=== PATIENT | male | born 1985 | race Caucasian/White ===

== ENCOUNTER 2018-01-04 01:34 | Emergency (ER) | payer SELFPAY | END 2018-01-04 02:00 | disposition left against medical advice (07) | LOC: ERS 01:34 | DX: Z53.21 Procedure and treatment not carried out due to patient leaving prior to being seen by health care provider (principal) ==

== ENCOUNTER 2018-01-04 02:11 | Emergency (ER) | payer SELFPAY ==
[2018-01-04] MEDS ORDERED: Proparacaine 0.5% Opth 15 ML BOT ONE (02:22)
[2018-01-04] MEDS ORDERED: Fluorescein Opthalmic Strip ONE (02:22)
[2018-01-04] MEDS ORDERED: Erythromycin Base 0.5% Oint 1 GM TUBE ONE (02:36)
== END 2018-01-04 02:49 | disposition home or self-care (01) ==
LOC: SCSER 02:11
DX: T15.02XA Foreign body in cornea, left eye, initial encounter (principal)
CPT/HCPCS: 65220

== ENCOUNTER 2018-04-06 23:30 | Emergency (ER) | payer OTHER, SELFPAY ==
[2018-04-06] MEDS ORDERED: Fluorescein Opthalmic Strip ONE (23:42)
[2018-04-06] MEDS ORDERED: Proparacaine 0.5% Opth 15 ML BOT ONE (23:42)
== END 2018-04-07 00:38 | disposition home or self-care (01) ==
LOC: SCSER 23:30
DX: T15.01XA Foreign body in cornea, right eye, initial encounter (principal)
CPT/HCPCS: 65210

== ENCOUNTER 2018-04-07 04:25 | Emergency (ER) | payer OTHER ==
[2018-04-07] MEDS ORDERED: Proparacaine 0.5% Opth 15 ML BOT ONE (04:32)
[2018-04-07] MEDS ORDERED: Fluorescein Opthalmic Strip ONE (04:32)
== END 2018-04-07 04:40 | disposition left against medical advice (07) ==
LOC: SCSER 04:25
DX: Z53.21 Procedure and treatment not carried out due to patient leaving prior to being seen by health care provider (principal)

== ENCOUNTER 2019-12-22 00:38 | Inpatient (IN) | payer OTHER, SELFPAY ==
[2019-12-22] MEDS ORDERED: Acetaminophen 500 MG TAB ONE ×2 (00:58)
[2019-12-22 01:12] LABS: Bacteria/HPF None Seen HPF (None Seen); Bilirubin Negative (Negative); Blood, Urine 2+ (Negative); Clarity Turbid (Clear); Glucose, Urine (Dipstick) Normal (Negative); Leukocyte 500 Leu/uL (Negative); Nitrite Negative (Negative); Protein, Urine (Dipstick) 50 mg/dL (Neg-Trace); RBC/HPF 21-50 HPF (0-3); Squamous Epithelial None Seen HPF (0-3); Urobilinogen Normal mg/dL (Less than 2); WBC/HPF Greater than 50 HPF (0-3)
[2019-12-22 01:19] LABS: Band 5 % (5-11); Lymphocytes 10 % (21-51); MDiff Complete? YES; Mean Corpuscular HGB CONC 33.9 g/dL (32.0-36.0); Mean Corpuscular Hemoglobin 30.1 pg (27.0-31.0); Mean Corpuscular Volume 88.9 fL (78.0-98.0); Mean Platelet Volume 6.2 fL (7.4-10.4); Monocytes 7 % (0-10); Neutrophil 78 % (42-75); Platelet Count 373 thou/uL (130-400); Platelet Morphology Comment Appears Adequate; RBC Distribution Width 11.2 % (11.5-14.5); Red Blood Cell (RBC) Count 4.66 mill/uL (4.70-6.10); White Blood Cell (WBC) Count 20.6 thou/uL (4.8-10.8)
[2019-12-22 01:26] LABS: ALT (SGPT) 48 U/L (8-55); AST (SGOT) 19 U/L (5-34); Albumin 4.2 g/dL (3.5-5.0); Alkaline Phosphatase 119 U/L (40-110); Anion Gap 13 mmol/L (10-20); BUN (Urea Nitrogen) 15 mg/dL (8.9-20.6); Bilirubin, Total 0.8 mg/dL (0.2-1.2); Calc. Creatinine Clearance 0 mL/min (70-130); Calcium 9.7 mg/dL (7.8-10.44); Carbon Dioxide 29 mmol/L (22-29); Chloride 94 mmol/L (98-107); Estimated GFR-MDRD 58; Globulin 4.1 g/dL (2.4-3.5); Glucose 139 mg/dL (70-105); Potassium 4.1 mmol/L (3.5-5.1); Protein, Total 8.3 g/dL (6.0-8.3); Sodium 132 mmol/L (136-145)
[2019-12-22] MEDS ORDERED: cefTRIAXone\\ROCEPHIN 1 GM VIAL ONE (01:27)
--- NOTE | 2019-12-22 04:57 | PDOC.FPRHP ---
- History of Present Illness Chief Complaint: R Flank Pain History of Present Illness: Pt is a 34 yo male with no significant PMH who presented to the emergency department for 2 day history of fever, headache, and a resolved R flank pain. He states his symptoms all started at the same time. His R flank pain was painful to touch, pressure yesterday but not light palpation. He no longer has R flank pain. He denies radiation to his groin, hematuria, dysuria but did endorse increased urinary frequency, urgency. His OLVERA became unbearable early this morning causing him to be seen. The pain is behind his eyes. He denies history of migraines. He does have neck stiffness but is able to touch his head to neck w/o pain. He noted an episode of similar R flank pain 1 month ago as well as dysuria, hematuria but did not see a stone. He denies hx of urinary anatomical malformation. ED Course: In the ED he was given tylenol 1 g, 2 L NS, and Rocephin 1 gm. - Allergies/Adverse Reactions Allergies Allergy/AdvReac Type Severity Reaction Status Date / Time No Known Drug Allergies Allergy Unverified 12/22/19 05:58 - History PMHx: none PSHx: none FHx: none Social: quit smoking 4.5 years ago. Occasional alcohol use. denies drug use. Allergies: none - Review of Systems General: reports: fever/chills, weight/appetite/sleep changes Eyes: reports: eye pain. denies: vision changes ENT: denies: nasal congestion, rhinorrhea Respiratory: denies: cough, congestion, shortness of breath Cardiovascular: denies: chest pain, palpitation, edema Gastrointestinal: reports: nausea. denies: vomiting, diarrhea, constipation Genitourinary: reports: polyuria. denies: incontinence, dysuria Skin: denies: rashes, lesions Musculoskeletal: denies: pain, tenderness Neurological: denies: numbness, syncope - Vital signs BP: 160/96 HR: 108 RR: 17 Tmax: 101.5 Pox: 99% on RA Wt: 102 kg - Physical Exam Constitutional: NAD, awake, alert and oriented HEENT: PERRLA, EOMI Neck: FROM, no JVD Heart: RRR, normal S1/S2, pulses present, no edema Lungs: CTAB, no respiratory distress, good air movement Abdomen: soft, non-tender, bowel sounds present Musculoskeletal: normal structure, normal tone -Musculoskeletal: Negative CVA tenderness Neurological: no focal deficit, CN II-XII intact -Skin: negative Kernig, Brudzinski Heme/Lymphatic: no purpura, no petechia Psychiatric: normal mood and affect FMR H&P: Results - Labs Result Diagrams: 12/22/19 00:53 02 00:53 Lab results: WBC 20.6 thou/uL (4.8-10.8) H 12/22/19 00:53 Hgb 14.0 g/dL (14.0-18.0) 12/22/19 00:53 Hct 41.5 % (42.0-52.0) L 12/22/19 00:53 MCV 88.9 fL (78.0-98.0) 12/22/19 00:53 Plt Count 373 thou/uL (130-400) 12/22/19 00:53 Band Neuts % (Manual) 5 % (5-11) 12/22/19 00:53 Sodium 132 mmol/L (136-145) L 12/22/19 00:53 Potassium 4.1 mmol/L (3.5-5.1) 12/22/19 00:53 Chloride 94 mmol/L (98-107) L 12/22/19 00:53 Carbon Dioxide 29 mmol/L (22-29) 12/22/19 00:53 BUN 15 mg/dL (8.9-20.6) 12/22/19 00:53 Creatinine 1.40 mg/dL (0.7-1.3) H 12/22/19 00:53 Glucose 139 mg/dL (70-105) H 12/22/19 00:53 Lactic Acid 1.2 mmol/L (0.5-2.2) 12/22/19 00:53 Calcium 9.7 mg/dL (7.8-10.44) 12/22/19 00:53 Total Bilirubin 0.8 mg/dL (0.2-1.2) 12/22/19 00:53 AST 19 U/L (5-34) 12/22/19 00:53 ALT 48 U/L (8-55) 12/22/19 00:53 Alkaline Phosphatase 119 U/L (40-110) H 12/22/19 00:53 Serum Total Protein 8.3 g/dL (6.0-8.3) 12/22/19 00:53 Albumin 4.2 g/dL (3.5-5.0) 02 00:53 Urine Ketones Negative mg/dL (Negative) 12/22/19 00:56 Urine Blood 2+ (Negative) A 12/22/19 00:56 Urine Nitrite Negative (Negative) 12/22/19 00:56 Ur Leukocyte Esterase 500 Trinity/uL (Negative) A 12/22/19 00:56 Urine RBC 21-50 HPF (0-3) A 12/22/19 00:56 Urine WBC Greater than 50 HPF (0-3) A 12/22/19 00:56 Ur Squamous Epith Cells None Seen HPF (0-3) 12/22/19 00:56 Urine Bacteria None Seen HPF (None Seen) 12/22/19 00:56 - EKG Interpretation EKG: A-flutter noted on EKG, difficult to discern if pt is in A-flutter 2:1 - Radiology Interpretation Chest x-ray Status: image reviewed by me Additional comment: WNL CT scan - pelvis Status: image reviewed by me Additional comment: Appears to have R perinephric stranding, kidney stones in bilateral kidneys FMR H&P: A/P - Problem List (1) Nephrolithiasis Current Visit: Yes Status: Acute (2) Urinary tract infection Current Visit: Yes Status: Acute - Plan Pt is a 34 yo male here for: # Pyleonephritis 2/2 Obstructing Nephrolithiasis # Sepsis 2/2 Pyleonephritis - continue rocephin 1 gm daily - 2 L in ED, bolus one more liter on floor then start LR 150 mls/hr - Tylenol 1 gm q6hr prn, Ibuprofen 800 mg q6h pain/fever - Urine Cx pending - Blood Cx pending # Obstructing Nephrolithiasis - resolved # Nephrolithiasis - consider urology referral for retained stones in kidney - stone analysis in future # A-Flutter Unable to determine if EKG reveals actual A-flutter. Asymptomatic. - repeat EKG once 3rd bolus finished Fluids: LR 150 mls/hr Diet: Reg VTE: SCD's Code: Full Dispo: > 48 hrs FMR H&P: Upper Level - Plan Date/Time: 12/22/19 2447 ILanette DO, have evaluated this patient and agree with findings/plan as outlined by geotechnical intern resident. Pertinent changes/additions are listed here. Pt is a 34 yo M with no PMH presenting for OLVERA, fever, and severe R flank pain, onset 2.5 days ago. He reports today flank pain resolved but OLVERA worsened and fever was persistent so came in. Hx of similar episode 1 month ago with dysuria , hematuria, and urgency that resolved with increased PO intake and AZO. Denies vision changes, photophobia, phonophobia, ill contacts, neck stiffness, hematuria. +nausea, frequency, urgency. Hx of Chlamydia at age 21. VS: BP160/96, P108, R17, T99.4 (Tmax 101.5), O299%RA PE: Gen: well developed, ill appearing, diaphoretic, in pain Heart: tachycardic, regular rhythm, no murmurs or extra sounds. Distal pulses 2+ Lungs: CTAB, no wheezing. No increased work of breathing Abd: soft, nontender, BS+, no CVA tenderness Ext: no cyanosis or edema Psych: AOx3 Pertinent Labs/Imaging: Na132, K4.1, Cl94, CO229, BUN15, Cr1.4, Gluc 139 LA 1.2 WBC20.6, 5% bands, 78% neutrophils UA- 500 Leukocytes, 2+blood, >50 WBC, no bacteria, neg nitrites Flu neg CXR: no infiltrates seen CTabd: R perinephric stranding without hydronephrosis, cholelithiasis EKG: read out is Aflutter 2:1, although flutter waves not consistent so likely artifact. No ST changes A/P: Sepsis 2/2 Pyelonephritis: -Likely related to recently passed stone with hx and CT findings -urine/blood cx pending, urine gram stain pending -s/p Rocephin in ED, continue- no increased risk of MRSA or psuedomonas -LA wnl, procal pending -s/p 2L IVF, will complete 30ml/kg bolus with 1 more L and then start maitenance IVF -Tylenol and Ibuprofen for pain and fever Aflutter vs Artifact: -place in telemetry -repeat EKG pending to compare, if still concerning, will plan on IV metoprolol dose Hypovolemic Hyponatremia: -mild, will give IVF and recheck DUANE vs CKD: -Trend BMP, rehydrate Elevated BP without HTN: -likely related to acute illness. -q4h VS DVT Ppx: SCD GI Ppx: none Dispo: Stable, LOS>48h Addendum - Attending - Attending Attestation Date/Time: 12/22/19 1410 I personally evaluated the patient and discussed the management with Dr. Dye and team. I agree with the History, Examination, Assessment and Plan documented above with any addition or exceptions noted below. On my exam the patient is ill appearing but states he feels much better than when he came in. He is wet from prior diaphoresis. RRR, not tachy, CTAB s w/r/ r, no murmurs, no CVAT. Continue antibiotics. Consider broadening depending on clinical course, which appears to be improving. Denies headache.
[2019-12-22] MEDS ORDERED: Ibuprofen 200 MG TAB ONE (06:05)
[2019-12-22] MEDS ORDERED: Acetaminophen 325 MG TAB ONE (07:27)
--- NOTE | 2019-12-22 07:34 | RAD ---
Exam: Chest one view HISTORY:Pain. Comparison: None. FINDINGS: Cardiac silhouette: Normal Aorta: Unremarkable Pulmonary vessels: Normal Costophrenic angles: Clear LUNGS: No masses or consolidation. Pneumothorax: None Osseous abnormalities: None IMPRESSION: No acute cardiopulmonary process.
[2019-12-22] MEDS ORDERED: Sodium Chloride 0.9% 1,000 ML IV SCH (08:27)
--- NOTE | 2019-12-22 08:35 | CT ---
PRELIMINARY REPORT/[facility]/EMERGENCY AFTER HOURS PROCEDURE: CT abdomen and pelvis without contrast: Comparison: None Findings: No significant abnormality in the lung bases. Normal gallbladder. No biliary ductal dilatation. Asymmetric edema around the right kidney. Small calcifications within both kidneys. No hydronephrosis or symptomatic urinary calculus. The solid organs are otherwise unremarkable within the limits of a noncontrast study. No aortic aneurysm. Normal appendix. No bowel obstruction, free fluid, free air, abscess or diverticulitis. Normal urinary bladder. Impression: Stranding in the fat around the right kidney without hydronephrosis or symptomatic calculus identifie d. Correlate clinically for pyelonephritis. Recently passed calculus could have this appearance. Ther e is bilateral nephrolithiasis. ELECTRONICALLY SIGNED BY: Axel Garcia MD Dec 22, 2019 2:44:41 AM PHARMACY DISTRICT MANAGER This report is intended for review by the ordering physician only, in accordance of law. If you recei ve this report in error, please call [facility] at [phone]. FINAL REPORT ABDOMEN CT WITHOUT CONTRAST PELVIC CT WITHOUT CONTRAST: HISTORY: Fever. Right flank pain. COMPARISON: None. FINDINGS: ABDOMEN CT: Lung bases are clear. Limited evaluation of the solid organs by lack of IV contrast. Grossly no abn ormality. There are bilateral nonobstructing intrarenal calculi. Bilaterally, no evidence of obstru ctive uropathy. Limited evaluation of the alimentary canal by the lack of oral contrast. No evidence of bowel obstru ction. Scattered fecal material in a nondistended, nondilated colon. Normal caliber appendix is saba ntified in the right lower quadrant. No periappendiceal inflammatory change. There is mild asymmetr ic right-sided perinephric fat stranding. CT PELVIS: No acute abnormality. IMPRESSION: This report is in agreement with the preliminary report by [facility]. Bilateral nonobstructin g intrarenal calculi without evidence of obstructive uropathy. Nonspecific right perinephric fat str anding. Correlate clinically. The possibility of pyelonephritis cannot be excluded. POS: OFF
[2019-12-22 10:07] VITALS: BMI 28.2
[2019-12-22] MEDS: Lactated Ringer's 1,000 ML IV SCH ×3 (10:30→21:15)
[2019-12-22] MEDS: Ibuprofen 800 MG TAB PO PRN (13:46)
[2019-12-22] MEDS: Acetaminophen 325 MG TAB PO PRN ×2 (14:49→21:15)
[2019-12-22] MEDS: Calcium Carbonate 500 MG ChewTAB PO SCH ×2 (21:16→21:17)
[2019-12-23] MEDS: Ibuprofen 800 MG TAB PO PRN ×2 (00:01→08:31)
[2019-12-23] MEDS: Lactated Ringer's 1,000 ML IV SCH ×4 (00:43→21:01)
[2019-12-23] MEDS ORDERED: cefTRIAXone\\ROCEPHIN 1 GM in Sodium Chloride 0.9% 100 ML IVPB SCH (01:30)
[2019-12-23 04:44] LABS: Band 10 % (5-11); Eosinophils 1 % (0-10); Lymphocytes 5 % (21-51); MDiff Complete? YES; Mean Corpuscular HGB CONC 33.6 g/dL (32.0-36.0); Mean Platelet Volume 6.6 fL (7.4-10.4); Monocytes 7 % (0-10); Neutrophil 77 % (42-75); Platelet Count 280 thou/uL (130-400); Platelet Morphology Comment Appears Adequate; RBC Distribution Width 11.3 % (11.5-14.5); RBC Morphology Normal; Red Blood Cell (RBC) Count 3.99 mill/uL (4.70-6.10); White Blood Cell (WBC) Count 15.3 thou/uL (4.8-10.8)
[2019-12-23 04:50] LABS: Anion Gap 10 mmol/L (10-20); BUN (Urea Nitrogen) 11 mg/dL (8.9-20.6); Calc. Creatinine Clearance 174 mL/min (70-130); Calcium 8.9 mg/dL (7.8-10.44); Carbon Dioxide 27 mmol/L (22-29); Chloride 103 mmol/L (98-107); Estimated GFR-MDRD Greater than 90; Glucose 120 mg/dL (70-105); Sodium 136 mmol/L (136-145)
--- NOTE | 2019-12-23 06:11 | PDOC.FM ---
- Subjective Subjective: Mr. Boggs is doing well this morning. He states he is feeling better. He did fever overnight and is sweaty. Denies abdominal pain, nausea, vomiting, flank pain, chest pain or shortness of breath. - Objective MAR Reviewed: Yes Vital Signs & Weight: Vital Signs (12 hours) Temp Pulse Resp BP Pulse Ox 12/23/19 03:28 98.0 F 89 18 109/56 L 98 12/22/19 23:29 100.9 F H 111 H 16 141/70 H 92 L 12/22/19 19:46 100.5 F H 97 16 102/61 94 L Weight Weight 96.933 kg Result Diagrams: 12/23/19 04:00 12/23/19 04:00 EKG Reviewed by me: Yes (Sinus rhythm on school lunch monitor) Phys Exam - Physical Examination Constitutional: NAD Sweaty HEENT: moist MMs, sclera anicteric Neck: no JVD, supple Respiratory: no wheezing, no rales, no rhonchi, clear to auscultation bilateral Cardiovascular: RRR, no significant murmur, no rub Gastrointestinal: soft, non-tender, positive bowel sounds Musculoskeletal: no edema, pulses present Neurological: non-focal, moves all 4 limbs Psychiatric: normal affect, A&O x 3 Skin: no rash, normal turgor Dx/Plan (1) Pyelonephritis Code(s): N12 - TUBULO-INTERSTITIAL NEPHRITIS, NOT SPCF ACUTE OR CHRONIC Status: Acute (2) Elevated alkaline phosphatase level Code(s): R74.8 - ABNORMAL LEVELS OF OTHER SERUM ENZYMES Status: Acute (3) DUANE (acute kidney injury) Code(s): N17.9 - ACUTE KIDNEY FAILURE, UNSPECIFIED Status: Acute (4) Sepsis Code(s): A41.9 - SEPSIS, UNSPECIFIED ORGANISM Status: Acute (5) Nephrolithiasis Status: Acute (6) Urinary tract infection Status: Acute - Plan Plan: Sepsis 2/2 pyelonephritis - Rocephin 1 gm daily - LR 150 mls/hr - Urine Cx pending - Blood Cx pending - Repeat procal pending this morning. Obstructing Nephrolithiasis - resolved Nephrolithiasis - consider urology referral for retained stones in kidney - stone analysis in future Consider transfer to medical. Fluids: LR 150 mls/hr Diet: Reg VTE: SCD's Code: Full Dispo: > 48 hrs Addendum - Attending - Attending Attestation Date/Time: 12/23/19 3298 I personally evaluated the patient and discussed the management with Dr. Brown. I agree with the History, Examination, Assessment and Plan documented above with any addition or exceptions noted below. Patient overall is feeling better but is taking a bit longer to defervesce than expected and is complaining of a significant headache. Will plan to expand coverage, order CT, and likely perform LP. He has had a negative head shake test and no nuchal rigidity or other signs of meningitis, however.
[2019-12-23] MEDS ORDERED: Calcium Carbonate 500 MG ChewTAB PO PRN (07:47)
[2019-12-23] MEDS ORDERED: Senokot S 8.6-50 MG TAB PO PRN (11:35)
[2019-12-23] MEDS: Aspirin/APAP/Caffeine Tab (Excedrin Migraine) PO PRN ×2 (13:58→21:16)
[2019-12-23] MEDS: Acetaminophen 500 MG TAB PO PRN ×2 (15:28→23:30)
[2019-12-23] MEDS ORDERED: Morphine 2 MG/ML SYRINGE SLOW IVP SCH (16:35)
--- NOTE | 2019-12-23 17:37 | CT ---
CT OF BRAIN PERFORMED WITHOUT CONTRAST ENHANCEMENT: 12/23/19 HISTORY: Severe headache. The ventricular and cisternal system is within normal limits. There is no signs of intracerebral hemo rrhage or extra-axial fluid collections. The mastoid air cells and visualized sinuses are clear. IMPRESSION: No acute intracranial abnormalities. POS: CALLUM
[2019-12-23] MEDS: Piperacillin/Tazobactam 3.375 GM in Sodium Chloride 0.9% 100 ML IVPB SCH ×2 (18:18→23:30)
--- NOTE | 2019-12-23 20:37 | PDOC.BPN ---
- Brief Progress Note Assessed patient at bedside States he has 0/10 headache at this time Neck is suppler, no pain with flexion, head shake without pain Will hold off on LP for now, discussed R/B/A with patient, patient in agreement
[2019-12-23] MEDS ORDERED: Vancomycin 1.5 GRAM/300 ML BAG 1.5 GM in Premix Bag 1 BAG IVPB SCH (21:00)
[2019-12-24] MEDS: Piperacillin/Tazobactam 3.375 GM in Sodium Chloride 0.9% 100 ML IVPB SCH ×4 (05:21→23:57)
--- NOTE | 2019-12-24 05:45 | PDOC.FM ---
- Subjective Subjective: Mr. Boggs is doing better this morning. He states that once his fever broke overnight he was able to sleep the rest of the night. This morning he is complaining of a mild headache and requested Tylenol. He denies nausea, vomiting, neck pain or stiffness, current fever or chills. - Objective MAR Reviewed: Yes Vital Signs & Weight: Vital Signs (12 hours) Temp Pulse Resp BP Pulse Ox 12/24/19 05:00 98.5 F 81 16 115/74 99 12/23/19 23:45 100.1 F H 111 H 16 111/64 95 12/23/19 20:00 98.9 F 107 H 16 104/66 96 Weight Admit Weight 96.933 kg Weight 96.933 kg I&O: 12/22/19 12/23/19 12/24/19 06:59 06:59 06:59 Intake Total 2280 Output Total 1230 1600 Balance 1050 -1600 Result Diagrams: 12/26/19 05:24 12/26/19 05:24 Phys Exam - Physical Examination Constitutional: NAD HEENT: moist MMs, sclera anicteric Neck: supple, full ROM Respiratory: no wheezing, no rales, no rhonchi, clear to auscultation bilateral Cardiovascular: RRR, no significant murmur, no rub Gastrointestinal: soft, non-tender Musculoskeletal: no edema, pulses present Neurological: non-focal, moves all 4 limbs Psychiatric: normal affect, A&O x 3 Skin: no rash, normal turgor Dx/Plan (1) Pyelonephritis Code(s): N12 - TUBULO-INTERSTITIAL NEPHRITIS, NOT SPCF ACUTE OR CHRONIC Status: Acute (2) Elevated alkaline phosphatase level Code(s): R74.8 - ABNORMAL LEVELS OF OTHER SERUM ENZYMES Status: Acute (3) DUANE (acute kidney injury) Code(s): N17.9 - ACUTE KIDNEY FAILURE, UNSPECIFIED Status: Acute (4) Sepsis Code(s): A41.9 - SEPSIS, UNSPECIFIED ORGANISM Status: Acute (5) Nephrolithiasis Status: Acute (6) Urinary tract infection Status: Acute - Plan Plan: Sepsis 2/2 pyelonephritis - Changed IV abx to Vancomycin and Zosyn 2/2 lack of significant improvement on Rocephin and increasing procalcitonin. - LR 150 mls/hr - Urine and blood cultures show NGTD [X] Rocephin 1 gm daily (12/22-12/23) Headache - Pt has had significant headache since admission that is waxing and waning, and worsens when he is fevering. It did not respond well to Tylenol or Excedrine yesterday. - CT head was negative - We included meningitis in our differential, however he had no neck rigidity or pain with movement. We discussed the risks and benefits of an LP. - After 2mg morphine resolved the headache, the pt decided not to proceed with the LP at this point in time. - Will continue to monitor closely. Obstructing Nephrolithiasis - resolved Nephrolithiasis - consider urology referral for retained stones in kidney - stone analysis in future Fluids: LR 150 mls/hr Diet: Reg VTE: SCD's Code: Full Dispo: > 48 hrs Addendum - Attending - Attending Attestation Date/Time: 12/27/19 1720 I personally evaluated the patient and discussed the management with the team on date of service. I agree with the History, Examination, Assessment and Plan documented above with any addition or exceptions noted below. Patient without headache during my exam. Low suspicion for meningitis as he has had one episode of headache that I have been notified about since admission. Negative hs/ker/brud/no nuchal rigidity. If persistent fever will consider repeat Abd scan to r/o abscess.
[2019-12-24] MEDS: Lactated Ringer's 1,000 ML IV SCH (05:48)
[2019-12-24] MEDS: Vancomycin 1.5 GRAM/300 ML BAG 1.5 GM in Premix Bag 1 BAG IVPB SCH ×3 (06:28→22:13)
[2019-12-24 06:35] LABS: Band 9 % (5-11); Hemoglobin 10.9 g/dL (14.0-18.0); Lymphocytes 22 % (21-51); MDiff Complete? YES; Mean Corpuscular HGB CONC 33.5 g/dL (32.0-36.0); Mean Corpuscular Hemoglobin 30.2 pg (27.0-31.0); Mean Corpuscular Volume 90.3 fL (78.0-98.0); Mean Platelet Volume 6.6 fL (7.4-10.4); Monocytes 14 % (0-10); Neutrophil 55 % (42-75); Platelet Count 276 thou/uL (130-400); Platelet Morphology Comment Appears Adequate; RBC Distribution Width 11.4 % (11.5-14.5); Red Blood Cell (RBC) Count 3.61 mill/uL (4.70-6.10); White Blood Cell (WBC) Count 8.9 thou/uL (4.8-10.8)
[2019-12-24] MEDS: Acetaminophen 500 MG TAB PO PRN ×2 (06:42→19:46)
[2019-12-24 06:45] LABS: Anion Gap 11 mmol/L (10-20); BUN (Urea Nitrogen) 9 mg/dL (8.9-20.6); Calc. Creatinine Clearance 170 mL/min (70-130); Calcium 8.8 mg/dL (7.8-10.44); Carbon Dioxide 25 mmol/L (22-29); Chloride 105 mmol/L (98-107); Estimated GFR-MDRD Greater than 90; Glucose 122 mg/dL (70-105); Potassium 3.7 mmol/L (3.5-5.1); Sodium 137 mmol/L (136-145)
[2019-12-24 21:24] LABS: Vancomycin, Trough 16.2 ug/mL
[2019-12-25] MEDS: Piperacillin/Tazobactam 3.375 GM in Sodium Chloride 0.9% 100 ML IVPB SCH ×4 (05:40→23:38)
[2019-12-25 05:54] LABS: Hemoglobin 11.5 g/dL (14.0-18.0); Hypochromia SLIGHT = 6-15 cells (100X) (0-5/hpf); Lymphocytes 25 % (21-51); MDiff Complete? YES; Mean Corpuscular HGB CONC 33.3 g/dL (32.0-36.0); Mean Corpuscular Hemoglobin 29.7 pg (27.0-31.0); Mean Corpuscular Volume 89.1 fL (78.0-98.0); Mean Platelet Volume 6.8 fL (7.4-10.4); Monocytes 9 % (0-10); Neutrophil 66 % (42-75); Platelet Count 330 thou/uL (130-400); Platelet Morphology Comment Appears Adequate; RBC Distribution Width 11.4 % (11.5-14.5); Red Blood Cell (RBC) Count 3.88 mill/uL (4.70-6.10); White Blood Cell (WBC) Count 7.3 thou/uL (4.8-10.8)
[2019-12-25 05:58] LABS: Anion Gap 12 mmol/L (10-20); BUN (Urea Nitrogen) 9 mg/dL (8.9-20.6); Calc. Creatinine Clearance 166 mL/min (70-130); Calcium 9.1 mg/dL (7.8-10.44); Carbon Dioxide 28 mmol/L (22-29); Chloride 102 mmol/L (98-107); Estimated GFR-MDRD Greater than 90; Glucose 129 mg/dL (70-105); Potassium 3.9 mmol/L (3.5-5.1); Sodium 138 mmol/L (136-145)
--- NOTE | 2019-12-25 06:24 | PDOC.FM ---
- Subjective Subjective: Pt is doing better today. He denies fever, chills today. He has not had a OLVERA in > 24 hours. He only has the OLVERA when he has fever. He required morphine only once and has been well controlled on tylenol, ibuprofen. Otherwise he does not complain of pain. - Objective Vital Signs & Weight: Vital Signs (12 hours) Temp Pulse Resp BP Pulse Ox 12/25/19 04:00 99.7 F H 87 18 122/75 97 12/25/19 00:00 99.7 F H 87 18 98/56 L 97 12/24/19 20:00 98.4 F 93 16 98/56 L 95 12/24/19 19:41 100.8 F H 94 16 103/62 95 Weight Admit Weight 96.933 kg Weight 96.933 kg I&O: 12/23/19 12/24/19 12/25/19 06:59 06:59 06:59 Intake Total 2280 Output Total 1230 1600 Balance 1050 -1600 Result Diagrams: 12/25/19 05:10 12/25/19 05:10 Phys Exam - Physical Examination Constitutional: NAD HEENT: PERRLA, moist MMs Respiratory: no wheezing, no rales, clear to auscultation bilateral Cardiovascular: RRR, no significant murmur Gastrointestinal: soft, non-tender, no distention Musculoskeletal: no edema, pulses present Psychiatric: normal affect, A&O x 3 Dx/Plan (1) Nephrolithiasis Status: Acute (2) Urinary tract infection Status: Acute - Plan Plan: Sepsis 2/2 pyelonephritis - Changed IV abx to Vancomycin and Zosyn on 12/23 12/17 lack of significant improvement on Rocephin and increasing procalcitonin. Procalc currently downtrending on current regimin. Last fever 12/24 1939. Continue IV Vanc/Zosyn. - LR 150 mls/hr - Urine and blood cultures show NGTD [X] Rocephin 1 gm daily (12/22-12/23) Headache - Pt has had significant headache since admission that is waxing and waning, and worsens when he is fevering. It did not respond well to Tylenol or Excedrine yesterday. - CT head was negative - We included meningitis in our differential, however he had no neck rigidity or pain with movement. We discussed the risks and benefits of an LP. - After 2mg morphine resolved the headache, the pt decided not to proceed with the LP at this point in time. - Will continue to monitor closely. Obstructing Nephrolithiasis - resolved Nephrolithiasis - consider urology referral for retained stones in kidney - stone analysis in future Fluids: LR 150 mls/hr Diet: Reg VTE: SCD's Code: Full Dispo: > 48 hrs Addendum - Attending - Attending Attestation Date/Time: 12/25/19 7379 I personally evaluated the patient and discussed the management with Dr. Dye I agree with the History, Examination, Assessment and Plan documented above with any addition or exceptions noted below. Urine culture negative. In context of abacturic pyuria will check GC/CT. Continue current abx. Possible d/c tomorrow or Wednesday pending clinical course.
[2019-12-25] MEDS: Vancomycin 1.5 GRAM/300 ML BAG 1.5 GM in Premix Bag 1 BAG IVPB SCH ×3 (06:45→21:12)
[2019-12-25] MEDS: Acetaminophen 500 MG TAB PO PRN ×2 (07:56→23:45)
[2019-12-26 06:10] LABS: Anion Gap 14 mmol/L (10-20); BUN (Urea Nitrogen) 11 mg/dL (8.9-20.6); Calc. Creatinine Clearance 159 mL/min (70-130); Calcium 9.4 mg/dL (7.8-10.44); Carbon Dioxide 25 mmol/L (22-29); Chloride 104 mmol/L (98-107); Estimated GFR-MDRD Greater than 90; Glucose 96 mg/dL (70-105); Potassium 4.3 mmol/L (3.5-5.1); Sodium 139 mmol/L (136-145)
[2019-12-26 06:14] LABS: Hemoglobin 12.3 g/dL (14.0-18.0); Mean Corpuscular HGB CONC 33.7 g/dL (32.0-36.0); Mean Corpuscular Hemoglobin 30.5 pg (27.0-31.0); Mean Corpuscular Volume 90.6 fL (78.0-98.0); Mean Platelet Volume 6.7 fL (7.4-10.4); Platelet Count 380 thou/uL (130-400); RBC Distribution Width 11.5 % (11.5-14.5); Red Blood Cell (RBC) Count 4.04 mill/uL (4.70-6.10); White Blood Cell (WBC) Count 7.1 thou/uL (4.8-10.8)
[2019-12-26 06:16] LABS: Eosinophils 3 % (0-10); Lymphocytes 29 % (21-51); MDiff Complete? YES; Monocytes 5 % (0-10); Neutrophil 63 % (42-75); Platelet Morphology Comment Appears Adequate
[2019-12-26] MEDS: Piperacillin/Tazobactam 3.375 GM in Sodium Chloride 0.9% 100 ML IVPB SCH ×2 (06:35→12:20)
[2019-12-26] MEDS: Vancomycin 1.5 GRAM/300 ML BAG 1.5 GM in Premix Bag 1 BAG IVPB SCH (06:36)
--- NOTE | 2019-12-26 06:43 | PDOC.FM ---
- Subjective Subjective: Pt is doing well today. He denies fever, OLVERA's. He has no urinary symptoms. Denies passage of stone. He has no neck pain. - Objective Vital Signs & Weight: Vital Signs (12 hours) Temp Pulse Resp BP Pulse Ox 12/26/19 00:00 99.3 F 89 20 106/71 97 12/25/19 20:00 99.2 F 79 20 114/76 100 12/25/19 19:41 100 Weight Admit Weight 96.933 kg Weight 96.933 kg I&O: 12/24/19 12/25/19 12/26/19 06:59 06:59 06:59 Intake Total 1557 Output Total 1600 975 Balance -1600 582 Result Diagrams: 12/26/19 05:24 12/26/19 05:24 Phys Exam - Physical Examination Constitutional: NAD Respiratory: no wheezing, clear to auscultation bilateral Cardiovascular: RRR, no significant murmur Gastrointestinal: soft, non-tender Musculoskeletal: pulses present Psychiatric: normal affect, A&O x 3 Dx/Plan (1) Nephrolithiasis Status: Acute (2) Urinary tract infection Status: Acute (3) Pyelonephritis Code(s): N12 - TUBULO-INTERSTITIAL NEPHRITIS, NOT SPCF ACUTE OR CHRONIC Status: Acute (4) Sepsis Code(s): A41.9 - SEPSIS, UNSPECIFIED ORGANISM Status: Acute - Plan Plan: Pyelonephritis Sepsis - resolved - Changed IV abx to Vancomycin and Zosyn on 12/23 12/17 lack of significant improvement on Rocephin and increasing procalcitonin. Procalc currently downtrending on current regimin. Last fever 12/24 1939. Continue IV Vanc/Zosyn until [facility] results. If neg consider switch to cipro, if positive will treat appropriately. - LR 150 mls/hr - Urine and blood cultures show NGTD. 1 BCx grew a likely contaminant. [X] Rocephin 1 gm daily (12/22-12/23) Headache - Pt has had significant headache since admission that is waxing and waning, and worsens when he is fevering. It did not respond well to Tylenol or Excedrine yesterday. - CT head was negative - We included meningitis in our differential, however he had no neck rigidity or pain with movement. We discussed the risks and benefits of an LP. - After 2mg morphine resolved the headache, the pt decided not to proceed with the LP at this point in time. - Will continue to monitor closely. Obstructing Nephrolithiasis - resolved Nephrolithiasis - consider urology referral for retained stones in kidney - stone analysis in future Fluids: SL Diet: Reg VTE: SCD's Code: Full Dispo: > 48 hrs Addendum - Attending - Attending Attestation Date/Time: 12/26/19 1206 I personally evaluated the patient and discussed the management with Dr. Dye. I agree with the History, Examination, Assessment and Plan documented above with any addition or exceptions noted below. Sx improved. Prostate normal. Switch to PO omnicef. Will f/u with GC/CT results and adjust therapy accordingly. D/C today Headache resolved and NO discussion of LP today.
[2019-12-26 11:47] VITALS: BP 100/63; TEMP 98
== END 2019-12-26 13:25 | disposition home or self-care (01) | DRG 872 ==
LOC: ERS 00:38 → 2SE 04:58 → ERS 08:01 → T4-B 12-23 16:58
PROVIDERS: ADMIT Family Medicine; ATTEND Family Medicine
DX: A41.9 Sepsis, unspecified organism (principal); I48.92 Unspecified atrial flutter; N10 Acute pyelonephritis; E87.1 Hypo-osmolality and hyponatremia; N17.9 Acute kidney failure, unspecified; N18.9 Chronic kidney disease, unspecified; N20.0 Calculus of kidney; R51 Headache; R74.8 Abnormal levels of other serum enzymes; F17.210 Nicotine dependence, cigarettes, uncomplicated; Z79.01 Long term (current) use of anticoagulants
CPT/HCPCS: 36415; 70450; 71045; 74176; 80048; 80053; 80202; 81003; 81015; 83605; 84145; 85007; 85025; 85027; 87040; 87086; 87149; 87205; 87491; 87591; 87804; 93005; 93010; 96361; 96365; J0696; J2270; J2543; J3490; J7120

== ENCOUNTER 2020-08-17 15:52 | Emergency (ER) | payer OTHER, SELFPAY ==
[2020-08-17] MEDS ORDERED: CEFAZOLIN 1 GM VIAL ONE (16:05)
[2020-08-17] MEDS ORDERED: Ondansetron PF 4 MG/2 ML Vial ONE (16:20)
[2020-08-17] MEDS ORDERED: Morphine 4 MG/ML VIAL ONE (16:20)
[2020-08-17] MEDS ORDERED: Lidocaine 1% w/Epinephrine 1:100K 20 ML VIAL ONE (16:46)
[2020-08-17] MEDS ORDERED: Bacitracin 1 PK ONE (17:41)
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
== END 2020-08-17 18:59 | disposition home or self-care (01) ==
LOC: ERS 15:52
DX: S51.812A Laceration without foreign body of left forearm, initial encounter (principal); F17.210 Nicotine dependence, cigarettes, uncomplicated; V89.2XXA Person injured in unspecified motor-vehicle accident, traffic, initial encounter
CPT/HCPCS: 12004; 71045; 96365; 96375; G0390; J0690; J2270; J2405